=== PATIENT | female | born 1960 | race Two or more races ===

== ENCOUNTER 2024-09-05 16:21 | Emergency (ER) | payer MEDICARE, MEDICAID, SELFPAY ==
[2024-09-05 16:30] VITALS: BP 180/101; BP 185/110; PULSE 77; RESP 18; TEMP 36.8; O2SAT 96; BMI 38.5
--- NOTE | 2024-09-05 17:03 | PD.EDRME ---
Rapid Medical Screening Exam RME Arrival date/time: 09/05/24 16:21 63-year-old female presents emergency department complaints of dysuria Chief Complaint: Urogenital-Female Vital signs: Vital Signs Temperature 98.3 F 09/05/24 16:30 Pulse Rate 77 09/05/24 16:30 Respiratory Rate 18 09/05/24 16:30 Blood Pressure 180/101 H 09/05/24 16:30 Pulse Oximetry (%) 96 09/05/24 16:30 Oxygen Delivery Method Room Air 09/05/24 16:30
[2024-09-05 17:26] LABS: Collection Type, Urine Clean Catch
[2024-09-05 17:32] LABS: Bilirubin,Urine Negative (Negative); Blood,Urine Negative (Negative); Clarity,Urine Clear (Clear/Hazy); Color,Urine Lt-Yellow (Lt Yel-Yel); Culture Indicated,Urine Not Indicated; Glucose, Urine 4+ (Negative); Ketones,Urine Negative (Negative); Leukocyte Esterase,Urine Negative (Negative); Nitrite,Urine Negative (Negative); Protein,Urine 1+ (Neg - Trace); RBC,Urine 2 /hpf (0-3); Specific Gravity,Urine 1.023 (1.001-1.035); Squamous Epithelial Cell,Urine < 1 /hpf (0-5); Urobilinogen,Urine Negative mg/dL (0.0-1.0); WBC,Urine 2 /hpf (0-5)
--- NOTE | 2024-09-05 17:48 | XR_ITS ---
Examination: Pelvic ultrasound, transabdominal, complete Technique: Transabdominal ultrasound of the pelvis performed using grayscale imaging Date and time of exam: September 05, 2024 1906 hrs. Indications: Pelvic pain and painful urination beginning 2 days ago Findings: Uterus 7.2 x 2.8 x 5.4 cm No uterine mass Endometrial stripe 0.5 cm Ovaries obscured by bowel gas Impression: Limited study No uterine mass
[2024-09-05 19:00] LABS: Basophils # (Auto) 0.1 Thou/mm3 (0.0-0.2); Basophils % (Auto) 1 % (0-2.5); Eosinophils # (Auto) 0.3 Thou/mm3 (0.0-0.5); Eosinophils % (Auto) 4 % (0-10); Hematocrit 44.4 % (36.0-46.0); Hemoglobin 15.7 g/dL (12.0-16.0); Immature Granulocytes % (Auto) 1 % (0-0); Immature Granulocytes Auto 0.04 Thou/mm3 (0.00-0.00); Lymphocytes # (Auto) 1.7 Thou/mm3 (1.0-4.8); Lymphocytes % (Auto) 20 % (10-50); Mean Corpuscular HGB Conc 35.4 g/dl (31.0-37.0); Mean Corpuscular Hemoglobin 31.7 pg (25.0-35.0); Mean Corpuscular Volume 90 fL (80-100); Monocytes # (Auto) 0.5 Thou/mm3 (0.0-0.8); Monocytes % (Auto) 6 % (0-12); Neutrophils % (Auto) 69 % (37-80); Nucleated Red Blood Cell % 0 /100 WBC (0); RDW Standard Deviation 42.2 fL (36.4-46.3); Red Blood Count 4.96 Miln/mm3 (4.00-5.20); White Blood Count 8.6 Thou/mm3 (3.6-11.0)
[2024-09-05 19:03] LABS: Platelet Count 45 Thou/mm3 (140-440)
[2024-09-05 19:16] LABS: Slide Review Platelets confirmed
[2024-09-05 19:27] LABS: Alanine Aminotransferase 125 U/L (10-49); Albumin, Serum 4.3 gm/dL (3.4-4.8); Alkaline Phosphatase 166 U/L (46-116); Anion Gap 9 (7-16); Aspartate Amino Transferase 143 U/L (0-34); BUN/Creatinine Ratio 18 Ratio (12-20); Bilirubin,Total 0.4 mg/dL (0.3-1.2); Blood Urea Nitrogen 18 mg/dL (9-23); Calcium 9.6 mg/dL (8.3-10.6); Calcium (Corrected) 9.6 mg/dL (8.5-10.1); Carbon Dioxide 25.5 mMol/L (20.0-31.0); Chloride 103 mMol/L (98-107); Estimated Creatinine Clearance 54.3 mL/min (>60); Globulin 4.1 gm/dL (2.3-3.5); Glucose 249 mg/dL (74-106); Osmolality,Calculated 283 (275-295); Potassium 4.4 mMol/L (3.4-5.1); Sodium 137 mMol/L (136-145); Total Protein 8.4 gm/dL (5.7-8.2); eGFR > 60 See Note
[2024-09-05 19:34] LABS: Glucose Estimated Average 203 mg/dL (80-131); Hemoglobin A1C 8.7 % Hgb (4.8-6.0)
--- NOTE | 2024-09-05 19:53 | EDNOTE_ITS ---
ED Female Urogenital RME/HPI General Chief complaint: Urogenital-Female Stated complaint: I HAVE A URINE INFECTION Time Seen by Provider: 09/05/24 19:46 Arrival date/time: 09/05/24 16:21 RME / HPI RME / HPI Narrative: 63-year-old female patient with significant history of hypertension diabetes mellitus, came in for evaluation regarding dysuria. Onset of symptoms for the last several days as worsening dysuria specially when urinating, and urine touching the side of the vagina, redness to the vagina and rashes. Severity mild. Patient denies any fever. Denies any other complaints or medications taken prior to arrival Related Data Home Medications ?Medication ?Instructions ?Recorded ?Confirmed dapagliflozin propanediol 10 mg 10 mg PO QDAY 01/26/20 07/30/21 tablet (Farxiga) sitagliptin phosphate 100 mg 100 mg PO QDAY 01/26/20 07/30/21 tablet (Januvia) amlodipine 5 mg tablet 5 mg PO QDAY 07/30/21 07/30/21 Previous Rx's ?Medication ?Instructions ?Recorded benzonatate 100 mg capsule 100 mg PO TID #14 caps 09/28/23 nystatin-triamcinolone 100,000 1 applic topical BID 7 days #60 09/05/24 unit/g-0.1 % topical cream grams Allergies Allergy/AdvReac Type Severity Reaction Status Date / Time bee venom protein (honey bee) Allergy Severe Difficulty Verified 04/06/21 15:15 Breathing Review of Systems Review of Systems Narrative Review of Systems: Review of system reviewed and within normal limits except mentioned in HPI ED Exam Narrative Physical exam: VITAL SIGNS: Reviewed. GENERAL APPEARANCE: Alert and interactive, follows commands, no acute distress, HEAD AND FACE: Non-traumatic. ENT: PERRL, pink conjunctivitis, eyelid no trauma, Mucous membrane moist. NECK: Supple, nontender, no nuchal rigidity. CHEST: No tenderness, no crepitus, no paradoxical movement, no retractions. LUNGS: Clear, well ventilated, symmetric, no rales, no wheezing, no ronchi, no stridor, good breath sounds bilaterally. HEART: Regular rate, regular rhythm, no murmur, no gallops. ABDOMEN: Soft, positive bowel sounds, nondistended, no guarding, nontender, no rebound, no masses, RECTAL: Deferred. GENITAL: Refused vaginal exam NEUROLOGICAL: Gross motor function intact sensory function intact, Appropriate for age. MUSCULOSKELETAL: low back nontender, full range of motion. EXTREMITIES: Nontender, full range of motion. SKIN: Color pink, dry, no rash, no lacerations, no abrasions, no contusions. LYMPHATICS: Deferred. Course Quality Measures none Orders Category Date Time Status US pelvic complete Stat Exams 09/05/24 17:48 Taken A1C [Glycohemoglobin w (eAG)] Stat Lab 09/05/24 18:21 Completed CBC Stat Lab 09/05/24 18:21 Completed CMP [Comprehensive Metabolic Panel] Stat Lab 09/05/24 18:21 Completed UA, C/S IF [Urinalysis, C/S if Indicated] Stat Lab 09/05/24 17:03 Completed Vital Signs Vital signs: Vital Signs Temperature 98.3 F 09/05/24 16:30 Pulse Rate 77 09/05/24 16:30 Respiratory Rate 18 09/05/24 16:30 Blood Pressure 180/101 H 09/05/24 16:30 Pulse Oximetry (%) 96 09/05/24 16:30 Oxygen Delivery Method Room Air 09/05/24 16:30 Urogenital - Female MDM Narrative MDM Narrative:: 63-year-old female patient with significant history of hypertension diabetes mellitus, came in for evaluation regarding dysuria. Onset of symptoms for the last several days as worsening dysuria specially when urinating, and urine touching the side of the vagina, redness to the vagina and rashes. Severity mild. Patient denies any fever. Denies any other complaints or medications taken prior to arrival Patient refused vaginal exam. However told me that she had some rashes in her vaginal area might be Preeti infection. Patient will be sent home on nystatin cream Patient data External records reviewed:: None Clinical information provided by:: patient Social determinants that could affect healthcare access:: none Patient has the following chronic illnesses:: Hypertension diabetes mellitus How is presenting disease/condition affected by chronic disease/condition?: exacerbated by Evaluation data The following diagnostics were reviewed and interpreted by me:: lab results and radiology exam(s) Lab and/or radiology exams considered but not ordered:: None Interpretation Summary: Patient's workup today all came back unremarkable. No UTI. Ultrasound of pelvis also came back normal. Results discussed with the patient. Medications / Prescriptions Medications or Prescriptions considered but not ordered:: None Medication administrations:: None Consultations Consultation(s) initiated? (list below): No Diagnosis Urogenital Female Differential Diagnosis: urinary tract infection and other (Vaginal candidiasis, vaginal rashes) Most likely diagnosis given after review of the tests above:: Dysuria, vaginal candidiasis Admission Indicated Admission indicated?: not indicated Explain why admission is indicated or not indicated:: Stable Admission Request Was there a request for admission?: No Disposition Plan Disposition Plan: Discharge Discharge Attestation Discharge Attestation: The patient was given an opportunity to ask questions and understood the discharge instructions. Discharge instructions specifically effects, indications for sooner follow up or return to the emergency department, and the expected course of current diagnosis. Patient condition: Stable Discharge Plan Plan Patient Disposition: HOME (Self Care) Disposition Comment: stable Prescriptions/Referrals Prescriptions/Med Rec: New nystatin-triamcinolone 100,000-0.1 unit/g-% cream 1 applic topical BID 7 Days Qty: 60 0RF No Action Januvia 100 mg Tablet 100 mg PO QDAY Farxiga 10 mg Tablet 10 mg PO QDAY amlodipine 5 mg Tablet 5 mg PO QDAY benzonatate 100 mg capsule 100 mg PO TID Qty: 14 0RF Referrals: Wagner Issa MD [Primary Care Provider] - In 1 week Problem List Clinical Impression: Dysuria, Candidiasis, vagina Patient/Caregiver Discharge Instructions Discharge Activity: activity as tolerated Education Materials: Candidiasis Vaginal Additional Instructions: Thank you for the opportunity for serving you today. You are stable for discharged . You are advised to: Follow-up with your PCP in 1 to 2 days Return to ED for worsening of symptoms Increase oral fluids Apply medication as prescribed Print Language: Bahraini Stand Alone Forms: Cailin Award Info., Patient Portal Info Letter PA/FORENSIC ANTHROPOLOGIST Supervising Physician PA/FORENSIC ANTHROPOLOGIST Supervising Physician: MD Oswald
[2024-09-05 19:57] VITALS: RESP 18
== END 2024-09-05 19:57 | disposition home or self-care (01) ==
PROVIDERS: Nurse Practitioner Primary Care; Emergency Provider Emergency Medicine; PCP Family Medicine
DX: B37.31 Acute candidiasis of vulva and vagina (principal); R30.0 Dysuria; R10.2 Pelvic and perineal pain
CPT/HCPCS: 36415; 76856; 80053; 81001; 83036; 85025; 99284

== ENCOUNTER 2024-10-15 22:38 | Emergency (ER) | payer MEDICARE, MEDICAID, SELFPAY ==
[2024-10-15 22:40] VITALS: BMI 37.6
[2024-10-15 23:23] VITALS: BP 176/104; PULSE 91; RESP 20; TEMP 36.8; O2SAT 97
--- NOTE | 2024-10-15 23:46 | EDNOTE_ITS ---
<Statement entered by Fraiba Marr MD - 10/16/24 01:45> As co-signing physician, I was present and available for consult prn. I concur with the plan and care as documented by the midlevel provider. ED Wound/Laceration-RME/HPI General Chief Complaint: Abdominal Pain Stated Complaint: CYST TO RLQ Time Seen by Provider: 10/15/24 22:47 Arrival date/time: 10/15/24 22:38 63-year-old female with a history of [id number] diabetes reports for complaints of a bump on her right lower quadrant of the abdomen. Patient states that she attempted to squeeze the bump but nothing had come out. She states that it is very painful she denies any fever or chills discharge from the area weakness or fatigue. Limitations: no limitations Related Data Home Medications ?Medication ?Instructions ?Recorded ?Confirmed dapagliflozin propanediol 10 mg 10 mg PO QDAY 01/26/20 07/30/21 tablet (Farxiga) sitagliptin phosphate 100 mg 100 mg PO QDAY 01/26/20 1 09/30/20 tablet (Januvia) amlodipine 5 mg tablet 5 mg PO QDAY 07/30/21 Previous Rx's ?Medication ?Instructions ?Recorded benzonatate 100 mg capsule 100 mg PO TID #14 caps 03/14 cephalexin 500 mg capsule 500 mg PO BID 10 days #20 ca ps 10/15/24 Allergies Allergy/AdvReac Type Severity Reaction Status Date / Time bee venom protein (honey bee) Allergy Severe Difficulty Verified 04/06/21 15:15 Breathing Review of Systems Constitutional Constitutional: Denies chills and Denies fever(s) Cardiovascular Cardiovascular: Denies chest pain, Denies claudication and Denies dyspnea Respiratory Respiratory: Denies cough and Denies dyspnea Gastrointestinal Gastrointestinal: Denies abdominal pain, Denies nausea and Denies vomiting Musculoskeletal Musculoskeletal: Denies arthralgias, Denies back pain, Denies numbness and Denies tingling Integumentary/Breasts Skin/Breast: Reports erythema and Reports furuncle Neurologic Neurologic: Denies numbness and Denies tingling Hematologic/Lymphatic Hematologic/Lymphatic: Denies easy bleeding and Denies easy bruising Past Medical History Past Medical History NEUROLOGIC: Negative Neurological Disorders CARDIAC: Positive Hypertension; Negative Cardiac Disorders or Congestive Heart Failure RESPIRATORY: Negative Chronic Obstructive Pulmonary Disease (COPD) or Asthma GENITOURINARY: Negative Renal Disease ENDOCRINE: Positive Endocrine Disorders and Diabetes Mellitus Type 2; Negative Diabetes Mellitus Type 1 HEMATOLOGIC: Negative Sickle Cell Disease Social History SMOKING STATUS: Never smoker SUBSTANCE USE: does not use ED Exam General Limitations: Present no limitations General appearance: Present alert and in no apparent distress Chest Chest inspection: Present normal inspection and symmetric chest wall rise Respiratory Respiratory exam: Present normal lung sounds bilaterally Cardiovascular Cardiovascular exam: Present regular rate, normal rhythm and normal heart sounds Abdominal Exam Abdominal exam: Present soft, normal bowel sounds and other (small inflamed hair follicle diffusely tender nonfluctuant no purulent discharge no surrounding cellulitis) Back Exam Back exam: Present normal inspection and full ROM Neurological Exam Neurological exam: Present alert, oriented X3 and CN II-XII intact Psychiatric Psychiatric exam: Present normal affect and normal mood Skin Skin exam: Present warm, dry, intact and normal color Course Course Course Narrative: 63-year-old female with a history of [id number] diabetes reports but the inflamed hair follicle on the right abdomen. Patient is advised to keep the area clean and dry do not apply warm compresses do not attempt to squeeze she is to take the antibiotics as directed and follow with her primary care provider in 48 hours. She is stable nontoxic-appearing stable vital signs will be discharged Quality Measures none Vital Signs Vital signs: Vital Signs Temperature 98.3 F 10/15/24 23:23 Pulse Rate 91 10/15/24 23:23 Respiratory Rate 20 10/15/24 23:23 Blood Pressure 176/104 H 10/15/24 23:23 Pulse Oximetry (%) 97 10/15/24 23:23 Oxygen Delivery Method Room Air 10/15/24 23:23 Wound / Laceration Patient data External records reviewed:: None Clinical information provided by:: patient Social determinants that could affect healthcare access:: none Patient has the following chronic illnesses:: none How is presenting disease/condition affected by chronic disease/condition?: no chronic disease Evaluation data The following diagnostics were reviewed and interpreted by me:: other (specify) (none) Lab and/or radiology exams considered but not ordered:: n/a Interpretation Summary: n/a Medications / Prescriptions Medications or Prescriptions considered but not ordered:: n/a Medication administrations:: Cephalexin Consultations Consultation(s) initiated? (list below): No Diagnosis Wound Differential Diagnosis: abscess Most likely diagnosis given after review of the tests above:: furuncle Admission Indicated Admission indicated?: not indicated Admission Request Was there a request for admission?: No Disposition Plan Disposition Plan: Discharge Discharge Attestation Discharge Attestation: The patient and all family members were given an opportunity to ask questions and understood the discharge instructions. Discharge instructions specifically effects, indications for sooner follow up or return to the emergency department, and the expected course of current diagnosis. Patient condition: Stable Discharge Plan Plan Patient Disposition: HOME (Self Care) Prescriptions/Referrals Prescriptions/Med Rec: New cephalexin 500 mg capsule 500 mg PO BID 10 Days Qty: 20 0RF No Action Januvia 100 mg Tablet 100 mg PO QDAY Farxiga 10 mg Tablet 10 mg PO QDAY amlodipine 5 mg Tablet 5 mg PO QDAY benzonatate 100 mg capsule 100 mg PO TID Qty: 14 0RF Problem List Clinical Impression: Furuncle Patient/Caregiver Discharge Instructions Discharge Activity: activity as tolerated Education Materials: ED Folliculitis Additional Instructions: Keep the area clean with soap and water only do not attempt to squeeze and do not apply warm compresses. Take antibiotics as directed follow-up with your primary care provider in 48 hours. Return to the emergency department if symptoms should worsen Print Language: Estonian Stand Alone Forms: Cailin Award Info., Patient Portal Info Letter
[2024-10-16] MEDS: cephALEXin 250 MG CAPSULE 500 MG PO (00:23)
== END 2024-10-16 00:26 | disposition home or self-care (01) ==
PROVIDERS: Emergency Provider Emergency Medicine; PCP Family Medicine
DX: L02.92 Furuncle, unspecified (principal); E11.9 Type 2 diabetes mellitus without complications
CPT/HCPCS: 99282; A9270

== ENCOUNTER 2024-10-30 01:54 | Emergency (ER) | payer MEDICARE, MEDICAID, SELFPAY ==
[2024-10-30 02:37] VITALS: BP 154/89; PULSE 75; RESP 18; TEMP 36.8; O2SAT 95
--- NOTE | 2024-10-30 02:52 | PD.EDRME ---
Rapid Medical Screening Exam RME Arrival date/time: 10/30/24 01:54 63 yo f present to ED for c/o of back/cough pain I have greeted and performed a focused initial assessment of this patient. A comprehensive ED assessment and evaluation of the patient, analysis of all test results, and completion of the medical decision making process will be conducted by additional ED providers. Chief Complaint: Back Pain/Injury Time Seen by Provider: 10/30/24 02:58 Vital signs: Vital Signs Temperature 98.2 F 10/30/24 02:37 Pulse Rate 75 10/30/24 02:37 Respiratory Rate 18 10/30/24 02:37 Blood Pressure 154/89 H 10/30/24 02:37 Pulse Oximetry (%) 95 10/30/24 02:37 Oxygen Delivery Method Room Air 10/30/24 02:37
--- NOTE | 2024-10-30 05:53 | PD.EDADDENDU ---
Emergency Room Addendum Addendum Narrative: This patient eloped. I did not do a history and physical exam on this patient.
== END 2024-10-30 03:18 | disposition left against medical advice (07) ==
LOC: SERX 04:05
PROVIDERS: Emergency Provider Emergency Medicine
DX: M54.9 Dorsalgia, unspecified (principal); Z53.29 Procedure and treatment not carried out because of patient's decision for other reasons
CPT/HCPCS: 80053; 81001; 83690; 85025; 87400; 99281

== ENCOUNTER 2024-12-04 13:46 | Emergency (ER) | payer MEDICARE, MEDICAID, SELFPAY ==
[2024-12-04 13:47] VITALS: BMI 39.6
[2024-12-04 14:09] VITALS: BP 158/89; PULSE 76; RESP 18; TEMP 36.4; O2SAT 97
--- NOTE | 2024-12-04 14:12 | XR_ITS ---
Examination: CT abdomen and pelvis without contrast. Coronal 3-D reconstructions. Sagittal 2-D reconstructions. Date and time of exam:December 04, 2024 1455 hours Comparison January 17, 2021 INDICATIONS: Abdominal pain and constipation beginning 4 days ago CTDI: vol (mGy): 13.3 DLP: (mGycm): 651 Technique: Axial images of the abdomen have been obtained, 3 mm slice thickness Intravenous contrast material has not been administered. Low dose protocols were performed. One or more of the following dose reduction techniques were used; automated exposure control, adjustment of the mA and/or KV according to patient size, use of iterative reconstruction technique. Findings: Diffuse fatty infiltration throughout the liver Absent gallbladder Spleen not enlarged No pancreatic or adrenal mass No renal or ureteral calculi, no hydronephrosis Abundant stool throughout the entire colon No bowel obstruction No diverticulitis No pericecal inflammatory change Anteverted atrophic uterus Prominent osteopenia Grade 1 anterolisthesis L5 on S1 with moderate degenerative disc disease at this level Moderate narrowing hip joints No bladder mass IMPRESSION: Fatty liver Abundant stool throughout the entire colon but no obstruction
--- NOTE | 2024-12-04 14:13 | EDRME_ITS ---
Rapid Medical Screening Exam [facility] Arrival date/time: 12/04/24 13:46 63-year-old female with no known medical history presents to the emergency room with a chief complaint of constipation x 4 days, vomiting, lower abdominal pain. Patient states she was seen by her primary care provider and prescribed laxatives but they have not worked. I have greeted and performed a focused initial assessment of this patient. A comprehensive ED assessment and evaluation of the patient, analysis of all test results, and completion of the medical decision making process will be conducted by additional ED providers. Chief Complaint: General Adult/Misc Complain Vital signs: Vital Signs Temperature 97.6 F 12/04/24 14:09 Pulse Rate 76 12/04/24 14:09 Respiratory Rate 18 12/04/24 14:09 Blood Pressure 158/89 H 12/04/24 14:09 Pulse Oximetry (%) 97 12/04/24 14:09 Oxygen Delivery Method Room Air 12/04/24 14:09 Vital signs reviewed by provider: Yes
[2024-12-04 14:51] LABS: Collection Type, Urine Clean Catch
[2024-12-04 15:07] LABS: Bilirubin,Urine Negative (Negative); Blood,Urine Negative (Negative); Budding Yeast,Urine Present; Clarity,Urine Clear (Clear/Hazy); Color,Urine Yellow (Lt Yel-Yel); Glucose, Urine 4+ (Negative); Hyaline Casts,Urine < 1 /hpf (0-1); Ketones,Urine Negative (Negative); Leukocyte Esterase,Urine Negative (Negative); Nitrite,Urine Negative (Negative); PH,Urine 5.5 (5.0-7.0); Protein,Urine 1+ (Neg - Trace); RBC,Urine 5 /hpf (0-3); Specific Gravity,Urine 1.031 (1.001-1.035); Squamous Epithelial Cell,Urine 2 /hpf (0-5); Urobilinogen,Urine Negative mg/dL (0.0-1.0); WBC,Urine 2 /hpf (0-5)
[2024-12-04 15:15] LABS: Basophils # (Auto) 0.1 Thou/mm3 (0.0-0.2); Basophils % (Auto) 1 % (0-2.5); Eosinophils # (Auto) 0.2 Thou/mm3 (0.0-0.5); Eosinophils % (Auto) 2 % (0-10); Hematocrit 46.1 % (36.0-46.0); Hemoglobin 15.6 g/dL (12.0-16.0); Immature Granulocytes % (Auto) 0 % (0-0); Immature Granulocytes Auto 0.03 Thou/mm3 (0.00-0.00); Lymphocytes # (Auto) 1.1 Thou/mm3 (1.0-4.8); Lymphocytes % (Auto) 11 % (10-50); Mean Corpuscular HGB Conc 33.8 g/dl (31.0-37.0); Mean Corpuscular Hemoglobin 31.1 pg (25.0-35.0); Mean Corpuscular Volume 92 fL (80-100); Monocytes # (Auto) 0.5 Thou/mm3 (0.0-0.8); Monocytes % (Auto) 5 % (0-12); Neutrophils # (Auto) 8.2 Thou/mm3 (1.8-7.7); Neutrophils % (Auto) 81 % (37-80); Nucleated Red Blood Cell % 0 /100 WBC (0); Platelet Count 82 Thou/mm3 (140-440); RDW Standard Deviation 45.1 fL (36.4-46.3); Red Blood Count 5.01 Miln/mm3 (4.00-5.20); White Blood Count 10.1 Thou/mm3 (3.6-11.0)
[2024-12-04 15:36] LABS: Alanine Aminotransferase 136 U/L (10-49); Albumin, Serum 4.3 gm/dL (3.4-4.8); Alkaline Phosphatase 137 U/L (46-116); Anion Gap 8 (7-16); Aspartate Amino Transferase 127 U/L (0-34); BUN/Creatinine Ratio 25 Ratio (12-20); Bilirubin,Total 0.8 mg/dL (0.3-1.2); Blood Urea Nitrogen 27 mg/dL (9-23); Calcium 9.4 mg/dL (8.3-10.6); Calcium (Corrected) 9.4 mg/dL (8.5-10.1); Carbon Dioxide 27.5 mMol/L (20.0-31.0); Chloride 104 mMol/L (98-107); Creatinine (Component) 1.1 mg/dL (0.6-1.3); Estimated Creatinine Clearance 48.1 mL/min (>60); Globulin 4.4 gm/dL (2.3-3.5); Glucose 184 mg/dL (74-106); Lipase 40 U/L (12-53); Osmolality,Calculated 287 (275-295); Potassium 4.6 mMol/L (3.4-5.1); Sodium 139 mMol/L (136-145); Total Protein 8.7 gm/dL (5.7-8.2); eGFR 56 See Note
--- NOTE | 2024-12-04 17:55 | PD.EDADULT ---
ED General RME/HPI General Chief complaint: General Adult/Misc Complain Stated complaint: NO BM X 4 DAYS Time Seen by Provider: 12/04/24 17:50 Arrival date/time: 12/04/24 13:46 CC: Constipation HPI patient states has been able to have a bowel movement for 4 days. She was recommended castor oil by her PCP she tried it at 1230 today with no result. She patient was apprised understand that this takes some time to work, patient is afebrile nontoxic-appearing not in any acute distress. RME / HPI RME / HPI narrative: 12/04/24 13:46 63-year-old female with no known medical history presents to the emergency room with a chief complaint of constipation x 4 days, vomiting, lower abdominal pain. Patient states she was seen by her primary care provider and prescribed laxatives but they have not worked. I have greeted and performed a focused initial assessment of this patient. A comprehensive ED assessment and evaluation of the patient, analysis of all test results, and completion of the medical decision making process will be conducted by additional ED providers. Related Data Home Medications ?Medication ?Instructions ?Recorded ?Confirmed dapagliflozin propanediol 10 mg 10 mg PO QDAY 01/26/20 07/30/21 tablet (Farxiga) sitagliptin phosphate 100 mg 100 mg PO QDAY 01/26/20 07/30/21 tablet (Januvia) amlodipine 5 mg tablet 5 mg PO QDAY 07/30/21 07/30/21 Previous Rx's ?Medication ?Instructions ?Recorded benzonatate 100 mg capsule 100 mg PO TID #14 caps 09/28/23 magnesium citrate 150 ml PO .once #296 mL 12/04/24 Allergies Allergy/AdvReac Type Severity Reaction Status Date / Time bee venom protein (honey bee) Allergy Severe Difficulty Verified 12/04/24 13:50 Breathing Review of Systems Review of Systems Narrative Review of Systems: GEN: No fever, no chills, no weight loss EYES: No discharge, no visual changes, no pain HEENT: No ear pain, no congestion, no sore throat PULM: No shortness of breath, no cough, no congestion CV: No chest pain, no dyspnea on exertion, no palpitations GI: No nausea, no vomiting, no diarrhea, no pain, + constipation : No frequency, no urgency, no dysuria MUSC/SKEL: No joint pain, no back pain SKIN: No rash PSYCH: No hallucinations, no depression HEME/LYMPH: No easy bleeding or bruising tendencies NEURO: No weakness, no headache Past Medical History Past Medical History NEUROLOGIC: Negative Neurological Disorders CARDIAC: Positive Hypertension; Negative Cardiac Disorders or Congestive Heart Failure RESPIRATORY: Negative Chronic Obstructive Pulmonary Disease (COPD) or Asthma GENITOURINARY: Negative Renal Disease ENDOCRINE: Positive Endocrine Disorders and Diabetes Mellitus Type 2; Negative Diabetes Mellitus Type 1 HEMATOLOGIC: Negative Sickle Cell Disease Social History SMOKING STATUS: Never smoker SUBSTANCE USE: does not use ED Exam Narrative Physical exam: [General: Not in any acute distress Head normocephalic HEENT: Within acceptable limits Neck is supple nontender Chest equal chest rise nontender to palpation Respiratory: Clear to auscultation no wheezes crackles or rubs CV: Rate rhythm is regular no murmurs rubs or clicks Abdomen is distended secondary to body habitus soft nontender no masses positive bowel sounds all 4 quadrants Back: No CVA tenderness no spinous process tenderness from cervical spine thoracic and lumbar spine Skin: Intact no petechiae rash induration ulceration or crepitus Extremities: Moving all extremity against resistance cap refill less than 2 seconds neurosensory intact Neuro: Awake alert oriented x3 Glascow coma 15 no focal deficits] Course Quality Measures none Orders Category Date Time Status CT abdomen pelvis wo con Stat Exams 12/04/24 14:12 Completed CBC Stat Lab 12/04/24 14:30 Completed CMP [Comprehensive Metabolic Panel] Stat Lab 12/04/24 14:30 Completed Lipase Stat Lab 12/04/24 14:30 Completed UA [Urinalysis] Stat Lab 12/04/24 14:30 Completed Urine Culture Stat Lab 12/04/24 14:30 Received Ondansetron Odt [Zofran Odt] Med 12/04/24 14:13 Discontinued 4 mg PO X1 ONE Vital Signs Vital signs: Vital Signs Temperature 97.6 F 12/04/24 14:09 Pulse Rate 76 12/04/24 14:09 Respiratory Rate 18 12/04/24 14:09 Blood Pressure 158/89 H 12/04/24 14:09 Pulse Oximetry (%) 97 12/04/24 14:09 Oxygen Delivery Method Room Air 12/04/24 14:09 [facility] Patient data External records reviewed:: [facility] previous records Clinical information provided by:: patient Social determinants that could affect healthcare access:: none Patient has the following chronic illnesses:: Diabetes hypertension How is presenting disease/condition affected by chronic disease/condition?: uneffected by Evaluation data The following diagnostics were reviewed and interpreted by me:: lab results and radiology exam(s) Lab and/or radiology exams considered but not ordered:: CBC shows no acute leukocytosis anemia there is no thrombocytopenia CMP shows no acute electrolyte imbalances mildly elevated BUN at 27 creatinine 1.1 Mild transaminitis no T. bili elevation. Urine is negative for urinary tract infection Interpretation Summary: Patient is mildly dehydrated, CT shows that there is a large amount of stool but no obstruction. Patient is not in any acute distress she is impatient, does not realize that the medications given by the doctor take some time to work. Patient will be prescribed 1 bottle of magnesium citrate in case the interventions directed by her PCP are not successful. Medications Medications considered but not ordered:: None Medication administrations:: Medication Administration History Discontinued Medications Ondansetron HCl (Ondansetron Odt 4 Mg Tabrap) 4 mg PO X1 ONE; Protocol Stop: 12/04/24 14:14 Last Admin: 12/04/24 14:18 Dose: Not Given Documented By: OA Non-Admin Reason: Patient Refused None Consultations Consultation(s) initiated? (list below): No Diagnosis Differential Diagnosis ED Complaint MDM: Constipation obstipation ileus Most likely diagnosis given after review of the tests above:: Constipation Admission Indicated Admission indicated?: not indicated Explain why admission is indicated or not indicated:: Stable for discharge Admission Request Was there a request for admission?: No Disposition Plan Disposition Plan: Discharge Discharge Attestation Discharge Attestation: The patient and all family members were given an opportunity to ask questions and understood the discharge instructions. Discharge instructions specifically effects, indications for sooner follow up or return to the emergency department, and the expected course of current diagnosis. Patient condition: Stable Medical Decision Making Differential Diagnosis Differential Diagnosis: Constipation obstipation ileus Lab Data 12/04/24 14:30 12/04/24 14:30 Labs: Lab Results 12/04/24 Range/Units 14:30 WBC 10.1 (3.6-11.0) Thou/mm3 RBC 5.01 (4.00-5.20) Miln/mm3 Hgb 15.6 (12.0-16.0) g/dL Hct 46.1 H (36.0-46.0) % MCV 92 (80-100) fL MCH 31.1 (25.0-35.0) pg MCHC 33.8 (31.0-37.0) g/dl RDW Std Deviation 45.1 (36.4-46.3) fL Plt Count 82 L (140-440) Thou/mm3 Neut % (Auto) 81 H (37-80) % Lymph % (Auto) 11 (10-50) % [place] % (Auto) 5 (0-12) % Eos % (Auto) 2 (0-10) % Baso % (Auto) 1 (0-2.5) % Neut # (Auto) 8.2 H (1.8-7.7) Thou/mm3 Lymph # (Auto) 1.1 (1.0-4.8) Thou/mm3 [place] # (Auto) 0.5 (0.0-0.8) Thou/mm3 Eos # (Auto) 0.2 (0.0-0.5) Thou/mm3 Baso # (Auto) 0.1 (0.0-0.2) Thou/mm3 Immature Gran # (Auto) 0.03 H (0.00-0.00) Thou/mm3 Absolute Nucleated RBC 0.00 (0.00-0.00) Thou/mm3 Immature Gran % 0 (0-0) % Nucleated RBC % 0 (0) /100 WBC Sodium 139 (136-145) mMol/L Potassium 4.6 (3.4-5.1) mMol/L Chloride 104 (98-107) mMol/L Carbon Dioxide 27.5 (20.0-31.0) mMol/L Anion Gap 8 (7-16) BUN 27 H (9-23) mg/dL Creatinine 1.1 (0.6-1.3) mg/dL Estim Creat Clear Calc 48.1 L (>60) mL/min eGFR 56 L (60 - ) See Note BUN/Creatinine Ratio 25 H (12-20) Ratio Glucose 184 H (74-106) mg/dL Calculated Osmolality 287 (275-295) Calcium 9.4 (8.3-10.6) mg/dL Corrected Calcium 9.4 (8.5-10.1) mg/dL Total Bilirubin 0.8 (0.3-1.2) mg/dL AST 127 H (0-34) U/L ALT 136 H (10-49) U/L Alkaline Phosphatase 137 H (46-116) U/L Total Protein 8.7 H (5.7-8.2) gm/dL Albumin 4.3 (3.4-4.8) gm/dL Globulin 4.4 H (2.3-3.5) gm/dL Albumin/Globulin Ratio 1.0 L (1.2-2.2) Lipase 40 (12-53) U/L Ur Collection Type Clean Catch Urine Color Yellow (Lt Yel-Yel) Urine Clarity Clear (Clear/Hazy) Urine pH 5.5 (5.0-7.0) Ur Specific Roann 1.031 (1.001-1.035) Urine Protein 1+ A (Neg - Trace) Urine Glucose (UA) 4+ A (Negative) Urine Ketones Negative (Negative) Urine Blood Negative (Negative) Urine Nitrite Negative (Negative) Urine Bilirubin Negative (Negative) Urine Urobilinogen (Auto) Negative (0.0-1.0) mg/dL Ur Leukocyte Esterase Negative (Negative) Urine RBC 5 H (0-3) /hpf Urine WBC 2 (0-5) /hpf Ur Squamous Epith Cells 2 (0-5) /hpf Urine Bacteria None (None) Hyaline Casts < 1 (0-1) /hpf Urine Yeast (Budding) Present A (None) Discharge Plan Plan Patient Disposition: HOME (Self Care) Patient condition on transfer: Stable Prescriptions/Referrals Prescriptions/Med Rec: New magnesium citrate Solution 150 ml PO .once Qty: 296 0RF No Action Januvia 100 mg Tablet 100 mg PO QDAY Farxiga 10 mg Tablet 10 mg PO QDAY amlodipine 5 mg Tablet 5 mg PO QDAY benzonatate 100 mg capsule 100 mg PO TID Qty: 14 0RF Referrals: Wagner Issa MD [Primary Care Provider] - In 1 week Problem List Clinical Impression: Constipation Patient/Caregiver Discharge Instructions Education Materials: ED Constipation (Adult) Print Language: Albanian Stand Alone Forms: Cailin Award Info., Patient Portal Info Letter, Work/School Release PA/THERAPEUTIC RECREATION SPECIALIST Supervising Physician PA/THERAPEUTIC RECREATION SPECIALIST Supervising Physician: Wes Ramos ENP
== END 2024-12-04 18:25 | disposition home or self-care (01) ==
PROVIDERS: Nurse Practitioner Family; Emergency Provider Emergency Medicine; PCP Family Medicine
DX: K59.00 Constipation, unspecified (principal)
CPT/HCPCS: 36415; 74176; 80053; 81001; 83690; 85025; 87086; 99284

== ENCOUNTER 2025-01-20 09:22 | Emergency (ER) | payer MEDICARE, MEDICAID, SELFPAY ==
[2025-01-20 09:59] VITALS: BP 172/78; PULSE 60; RESP 18; TEMP 36.5; O2SAT 98; BMI 39.6
--- NOTE | 2025-01-20 11:05 | PD.EDLOWEX ---
Lower Extremity Injury RME/HPI General Chief Complaint: Extremity Injury, Lower Stated Complaint: RIGHT FOOT PAIN Time Seen by Provider: 01/20/25 09:53 Arrival date/time: 01/20/25 09:22 This is a 64-year-old female that comes in with complaints of right foot pain. Patient's right second digit is bruised and slightly swollen. Patient states she dropped a jar of mayonnaise on her foot. Patient has a history of diabetes, high blood pressure. Related Data Home Medications ?Medication ?Instructions ?Recorded ?Confirmed dapagliflozin propanediol 10 mg 10 mg PO QDAY 01/26/20 07/30/21 tablet (Farxiga) sitagliptin phosphate 100 mg 100 mg PO QDAY 01/26/20 07/30/21 tablet (Januvia) amlodipine 5 mg tablet 5 mg PO QDAY 07/30/21 07/30/21 Previous Rx's ?Medication ?Instructions ?Recorded benzonatate 100 mg capsule 100 mg PO TID #14 caps 09/28/23 magnesium citrate 150 ml PO .once #296 mL 12/04/24 Allergies Allergy/AdvReac Type Severity Reaction Status Date / Time bee venom protein (honey bee) Allergy Severe Difficulty Verified 01/20/25 09:26 Breathing Course Orders Category Date Time Status XR foot comp RT min 3V Stat Exams 01/20/25 11:06 Completed Vital Signs Vital signs: Vital Signs Temperature 97.7 F 01/20/25 09:59 Pulse Rate 60 01/20/25 09:59 Respiratory Rate 18 01/20/25 09:59 Blood Pressure 172/78 H 01/20/25 09:59 Pulse Oximetry (%) 98 01/20/25 09:59 Oxygen Delivery Method Room Air 01/20/25 09:59 Discharge Plan Plan Patient Disposition: HOME (Self Care) Patient condition on transfer: Stable Prescriptions/Referrals Prescriptions/Med Rec: No Action Januvia 100 mg Tablet 100 mg PO QDAY Farxiga 10 mg Tablet 10 mg PO QDAY amlodipine 5 mg Tablet 5 mg PO QDAY benzonatate 100 mg capsule 100 mg PO TID Qty: 14 0RF magnesium citrate Solution 150 ml PO .once Qty: 296 0RF Referrals: Wagner Issa MD [Primary Care Provider] - In 1 week Problem List Clinical Impression: Metatarsal bone fracture, Contusion of foot Patient/Caregiver Discharge Instructions Discharge Activity: activity as tolerated Education Materials: Bruises (Contusions), ED Fracture, Foot Additional Instructions: Follow up with primary provider in 1-2 days. Come back to ED if symptoms change or worsen. may need to see orthopedic surgeon. Please see from primary provider Print Language: Czech Stand Alone Forms: Cailin Award Info., Patient Portal Info Letter PA/GROCERY SUPERVISOR Supervising Physician PA/GROCERY SUPERVISOR Supervising Physician: marsha
--- NOTE | 2025-01-20 11:06 | XR_ITS ---
Examination: Foot, right, 3 views Technique: AP, oblique, lateral views foot, 3 views Date and time of exam: January 20, 2025 11:11 AM INDICATIONS: Injury to foot 2 days ago, foot pain FINDINGS: On the AP view suspicious for nondisplaced fracture proximal fourth metatarsal No dislocation IMPRESSION: As clinically warranted, consider CT scan for without contrast follow-up to exclude nondisplaced fracture proximal fourth metatarsal
== END 2025-01-20 13:56 | disposition home or self-care (01) ==
PROVIDERS: Emergency Provider Emergency Medicine; PCP Family Medicine
DX: S92.344A Nondisplaced fracture of fourth metatarsal bone, right foot, initial encounter for closed fracture (principal); W20.8XXA Other cause of strike by thrown, projected or falling object, initial encounter
CPT/HCPCS: 29515; 73630; 99283

== ENCOUNTER 2025-04-21 23:02 | Emergency (ER) | payer MEDICARE, MEDICAID, SELFPAY ==
[2025-04-21 23:03] VITALS: BMI 39.4
[2025-04-21 23:09] VITALS: BP 193/95; PULSE 63; RESP 18; TEMP 36.5; O2SAT 100
--- NOTE | 2025-04-21 23:31 | XR_ITS ---
Examination: CT abdomen and pelvis without contrast. Coronal 3-D reconstructions. Sagittal 2-D reconstructions. Date and time of exam:April 21, 2000 2514 hours Indications: Right flank pain beginning 3 days ago CTDI: vol (mGy): 11.5 DLP: (mGycm): 646 Technique: Axial images of the abdomen have been obtained, 3 mm slice thickness Intravenous contrast material has not been administered. Low dose protocols were performed. One or more of the following dose reduction techniques were used; automated exposure control, adjustment of the mA and/or KV according to patient size, use of iterative reconstruction technique. Findings: Impression: Significant hepatomegaly, liver irregular contour Hepatomegaly 22 cm No focal liver or splenic lesions. Absent gallbladder. No pancreatic or adrenal mass. Mild renal parenchymal scar formation. Abdominal aortic calcification no aneurysmal dilatation No pericecal inflammatory change No bowel obstruction or diverticulitis Atrophic uterus Moderate degenerative disc disease L5-S1 Impression: Significant hepatomegaly, suspect primary hepatocellular disease No renal or ureteral calculi, no hydronephrosis No CT findings of appendicitis bowel obstruction or diverticulitis
[2025-04-21 23:39] LABS: Collection Type, Urine Clean Catch; WBC,Urine 0 /hpf (0-5)
[2025-04-21 23:49] LABS: Amorphous Crystals,Urine Present (Absent); Bilirubin,Urine Negative (Negative); Blood,Urine Negative (Negative); Clarity,Urine Clear (Clear/Hazy); Color,Urine Lt-Yellow (Lt Yel-Yel); Glucose, Urine 4+ (Negative); Ketones,Urine Negative (Negative); Leukocyte Esterase,Urine Negative (Negative); Nitrite,Urine Negative (Negative); PH,Urine 6.0 (5.0-7.0); Protein,Urine Negative (Neg - Trace); RBC,Urine 1 /hpf (0-3); Specific Gravity,Urine 1.026 (1.001-1.035); Squamous Epithelial Cell,Urine 1 /hpf (0-5); Urobilinogen,Urine Negative mg/dL (0.0-1.0)
[2025-04-21 23:59] LABS: HCG Qualitative,Urine Negative
[2025-04-22 00:05] LABS: Basophils # (Auto) 0.1 Thou/mm3 (0.0-0.2); Basophils % (Auto) 1 % (0-2.5); Eosinophils # (Auto) 0.4 Thou/mm3 (0.0-0.5); Eosinophils % (Auto) 4 % (0-10); Hematocrit 42.1 % (36.0-46.0); Hemoglobin 14.6 g/dL (12.0-16.0); Immature Granulocytes Auto 0.04 Thou/mm3 (0.00-0.00); Lymphocytes # (Auto) 2.0 Thou/mm3 (1.0-4.8); Lymphocytes % (Auto) 23 % (10-50); Mean Corpuscular HGB Conc 34.7 g/dl (31.0-37.0); Mean Corpuscular Hemoglobin 32.2 pg (25.0-35.0); Mean Corpuscular Volume 93 fL (80-100); Monocytes # (Auto) 0.6 Thou/mm3 (0.0-0.8); Monocytes % (Auto) 7 % (0-12); Neutrophils # (Auto) 5.7 Thou/mm3 (1.8-7.7); Neutrophils % (Auto) 65 % (37-80); Nucleated Red Blood Cell # 0.00 Thou/mm3 (0.00-0.00); Nucleated Red Blood Cell % 0 /100 WBC (0); Platelet Count 112 Thou/mm3 (140-440); RDW Standard Deviation 47.3 fL (36.4-46.3); Red Blood Count 4.53 Miln/mm3 (4.00-5.20); White Blood Count 8.8 Thou/mm3 (3.6-11.0)
[2025-04-22 00:26] LABS: Alanine Aminotransferase 57 U/L (10-49); Albumin, Serum 4.1 gm/dL (3.4-4.8); Albumin/Globulin Ratio 1.2 (1.2-2.2); Alkaline Phosphatase 191 U/L (46-116); Anion Gap 9 (7-16); Aspartate Amino Transferase 43 U/L (0-34); BUN/Creatinine Ratio 17 Ratio (12-20); Bilirubin,Total 0.3 mg/dL (0.3-1.2); Blood Urea Nitrogen 15 mg/dL (9-23); Calcium 9.6 mg/dL (8.3-10.6); Calcium (Corrected) 9.6 mg/dL (8.5-10.1); Carbon Dioxide 25.8 mMol/L (20.0-31.0); Chloride 104 mMol/L (98-107); Creatinine (Component) 0.9 mg/dL (0.6-1.3); Estimated Creatinine Clearance 57.9 mL/min (>60); Globulin 3.4 gm/dL (2.3-3.5); Glucose 223 mg/dL (74-106); Lipase 44 U/L (12-53); Osmolality,Calculated 285 (275-295); Potassium 4.3 mMol/L (3.4-5.1); Sodium 139 mMol/L (136-145); Total Protein 7.5 gm/dL (5.7-8.2); eGFR > 60 See Note
--- NOTE | 2025-04-22 01:00 | PD.EDFMALE ---
ED Female Urogenital RME/HPI General Chief complaint: Urogenital-Female Stated complaint: I THINK I HAVE A BAD UTI Time Seen by Provider: 04/21/25 23:15 Arrival date/time: 04/21/25 23:02 This is a case of 68-year-old female with history of diabetes came in in the emergency room due to bilateral flank pain radiating to the lower back and suprapubic area for 1 day associated with painful urination frequency and urgency no hematuria denies nausea vomiting denies constipation diarrhea denies any blood in stool Limitations: no limitations Related Data Home Medications ?Medication ?Instructions ?Recorded ?Confirmed dapagliflozin propanediol 10 mg 10 mg PO QDAY 01/26/20 07/30/21 tablet (Farxiga) sitagliptin phosphate 100 mg 100 mg PO QDAY 01/26/20 07/30/21 tablet (Januvia) amlodipine 5 mg tablet 5 mg PO QDAY 07/30/21 07/30/21 Previous Rx's ?Medication ?Instructions ?Recorded benzonatate 100 mg capsule 100 mg PO TID #14 caps 09/28/23 magnesium citrate 150 ml PO .once #296 mL 12/04/24 cephalexin 500 mg capsule 500 mg PO QID 10 days #40 caps 04/22/25 phenazopyridine 200 mg tablet 200 mg PO TID 2 days #6 tabs 04/22/25 (Pyridium) Allergies Allergy/AdvReac Type Severity Reaction Status Date / Time bee venom protein (honey bee) Allergy Severe Difficulty Verified 04/21/25 23:03 Breathing Review of Systems Review of Systems Systems Reviewed: All systems reviewed, normal except as documented Constitutional Constitutional: Reports system reviewed and no additional complaints, except as documented and Reports as per HPI Cardiovascular Cardiovascular: Reports system reviewed and no additional complaints, except as documented and Reports as per HPI Respiratory Respiratory: Reports system reviewed and no additional complaints, except as documented and Reports as per HPI Gastrointestinal Gastrointestinal: Reports system reviewed and no additional complaints, except as documented and Reports as per HPI Genitourinary Genitourinary: Reports system reviewed and no additional complaints, except as documented and Reports as per HPI Musculoskeletal Musculoskeletal: Reports system reviewed and no additional complaints, except as documented and Reports as per HPI Neurologic Neurologic: Reports system reviewed and no additional complaints, except as documented and Reports as per HPI Past Medical History Past Medical History NEUROLOGIC: Negative Neurological Disorders CARDIAC: Positive Hypertension; Negative Cardiac Disorders or Congestive Heart Failure RESPIRATORY: Negative Chronic Obstructive Pulmonary Disease (COPD) or Asthma GENITOURINARY: Negative Renal Disease ENDOCRINE: Positive Endocrine Disorders and Diabetes Mellitus Type 2; Negative Diabetes Mellitus Type 1 HEMATOLOGIC: Negative Sickle Cell Disease Social History SMOKING STATUS: Never smoker SUBSTANCE USE: does not use ED Exam General Limitations: Present no limitations General appearance: Present alert, in no apparent distress and other (Patient is awake alert oriented not in distress nontoxic looking well-hydrated well-nourished) Head Head exam: Present atraumatic, normocephalic and normal inspection Eye Eye exam: Present normal appearance, PERRL and EOMI ENT ENT exam: Present normal exam, normal oropharynx and mucous membranes moist Neck Neck exam: Present normal inspection, full ROM and trachea midline; Absent tenderness, meningismus or lymphadenopathy Chest Chest inspection: Present normal inspection and symmetric chest wall rise; Absent tenderness Respiratory Respiratory exam: Present normal lung sounds bilaterally; Absent respiratory distress, wheezes, stridor, accessory muscle use or prolonged expiratory phase Cardiovascular Cardiovascular exam: Present regular rate, normal rhythm and normal heart sounds; Absent bradycardia, tachycardia, irregular rhythm, systolic murmur or diastolic murmur Abdominal Exam Abdominal exam: Present soft and normal bowel sounds; Absent distention, tenderness, guarding, rebound, rigidity, diminished bowel sounds, hyperactive bowel sounds, hypoactive bowel sounds, organomegaly, trauma, psoas sign, obturator sign, Soto's sign, Rovsing's sign, tenderness at McBurney's Point, ascites or hernia Extremities Exam Extremities exam: Present normal inspection and full ROM Back Exam Back exam: Present normal inspection and full ROM; Absent tenderness, CVA tenderness (R), CVA tenderness (L), muscle spasm, paraspinal tenderness, vertebral tenderness, rashes, sciatic notch tenderness (R) or sciatic notch tenderness (L) Neurological Exam Neurological exam: Present alert, oriented X3, CN II-XII intact, normal gait and reflexes normal; Absent motor sensory deficit Psychiatric Psychiatric exam: Present normal affect and normal mood Skin Skin exam: Present warm, dry, intact and normal color Course Quality Measures none Orders Category Date Time Status CT abdomen pelvis wo con Stat Exams 04/21/25 23:31 Completed CBC Stat Lab 04/21/25 23:51 Completed Comprehensive Metabolic Panel Stat Lab 04/21/25 23:51 Completed HCG Qualitative,Urine Stat Lab 04/21/25 23:32 Completed Lipase Stat Lab 04/21/25 23:51 Completed Urinalysis Stat Lab 04/21/25 23:32 Completed cephALEXin [Keflex] Med 04/22/25 00:50 Discontinued 500 mg PO X1 ONE Vital Signs Vital signs: Vital Signs Temperature 97.7 F 04/21/25 23:09 Pulse Rate 63 04/21/25 23:09 Respiratory Rate 18 04/21/25 23:09 Blood Pressure 193/95 H 04/21/25 23:09 Pulse Oximetry (%) 100 04/21/25 23:09 Oxygen Delivery Method Room Air 04/21/25 23:09 Patient oxygen saturation is 100% in room air Urogenital - Female MDM Narrative MDM Narrative:: This is a case of 68-year-old female with history of diabetes came in in the emergency room due to bilateral flank pain radiating to the lower back and suprapubic area for 1 day associated with painful urination frequency and urgency no hematuria denies nausea vomiting denies constipation diarrhea denies any blood in stool physical examination patient is awake alert oriented not in distress nontoxic looking well-hydrated well-nourished excellent skin turgor abdominal exam is benign nonsurgical no guarding no rebound no rigidity no tenderness negative psoas negative straight or negative Rovsing's negative Omaha's negative Soto sign negative CVA tenderness patient back exam noted no tenderness no crepitation no deformity no paraspinal no paravertebral tenderness leg raise exam is normal steady gait the rest of the physical examination neurological exam is normal and unremarkable blood test showed no leukocytosis no anemia kidney function is normal liver function is slightly elevated AST 43 ALT 57 alk phos 191 patient have hepatomegaly on the ultrasound patient was advised to see a GI specialist for further evaluation and treatment patient urinalysis showed positive for urinary tract infection CT scan showed hepatomegaly DDD of the lumbar patient was discharged with cephalexin for urinary tract infection and Pyridium for the dysuria patient will follow-up with PCP to be referred to neurosurgeon for DDD for possible MRI to rule out herniated disc no signs and symptoms of cauda equina return precaution in the ER for worsening symptoms he is advised Patient was discharged with comfortable condition walking with stable gait. Patient verbalized no further complains explained diagnosis and answered patient question. Patient is comfortable with the proposed management plan including the need to follow up with his/her primary care physician and any specialist if applicable Discussed patient for any urgent condition or worsening sx, He/She needed to go to emergency room immediately or call 911. Patient acknowledge the responsibility to follow up as instructed and to monitor her/his symptoms. For any persistence of the symptoms for more than 3-5 days return precaution advised. Discussed the result of the test and was given printed discharge instruction Patient data External records reviewed:: [facility] previous records Clinical information provided by:: patient Social determinants that could affect healthcare access:: none Patient has the following chronic illnesses:: None How is presenting disease/condition affected by chronic disease/condition?: no chronic disease Evaluation data The following diagnostics were reviewed and interpreted by me:: lab results and radiology exam(s) Lab and/or radiology exams considered but not ordered:: Reviewed Interpretation Summary: Reviewed Medications / Prescriptions Medications or Prescriptions considered but not ordered:: Given Medication administrations:: Medication Administration History Discontinued Medications Cephalexin HCl (Cephalexin 250 Mg Capsule) 500 mg PO X1 ONE Stop: 04/22/25 00:51 Last Admin: 04/22/25 00:57 Dose: 500 mg Documented By: SM Given Consultations Consultation(s) initiated? (list below): No Diagnosis Urogenital Female Differential Diagnosis: urinary tract infection and other (Kidney stones) Most likely diagnosis given after review of the tests above:: Urinary tract infection Admission Indicated Admission indicated?: not indicated Explain why admission is indicated or not indicated:: Not indicated Admission Request Was there a request for admission?: No Admission Attestation Admission request attestation: Not indicated Disposition Plan Disposition Plan: Discharge Discharge Attestation Discharge Attestation: The patient and all family members were given an opportunity to ask questions and understood the discharge instructions. Discharge instructions specifically effects, indications for sooner follow up or return to the emergency department, and the expected course of current diagnosis. Patient condition: Stable Discharge Plan Plan Patient Disposition: HOME (Self Care) Patient condition on transfer: Stable Prescriptions/Referrals Prescriptions/Med Rec: New cephalexin 500 mg capsule 500 mg PO QID 10 Days Qty: 40 0RF phenazopyridine [Pyridium] 200 mg tablet 200 mg PO TID 2 Days Qty: 6 0RF No Action Januvia 100 mg Tablet 100 mg PO QDAY Farxiga 10 mg Tablet 10 mg PO QDAY amlodipine 5 mg Tablet 5 mg PO QDAY benzonatate 100 mg capsule 100 mg PO TID Qty: 14 0RF magnesium citrate Solution 150 ml PO .once Qty: 296 0RF Problem List Clinical Impression: Flank pain, Urinary tract infection, Hepatomegaly, Abnormal glucose, DDD (degenerative disc disease), lumbar Patient/Caregiver Discharge Instructions Education Materials: Tests for Liver Disease, Urinary Tract Infections in Women, Diabetes: Living Your Life, ED Degenerative Disk Disease, ED Flank Pain, Uncertain Cause Additional Instructions: Follow-up with your primary care physician in 2 days for reevaluation and to be referred to warehouse engineer for further evaluation and treatment of hepatomegaly it is also very important to monitor your blood sugar and to record reviewed the medication and take the medication as directed by your primary care physician continue to monitor the blood sugar every 12 hours and return to the emergency room if your blood sugar greater than 250 or below 80 or become symptomatic diabetic diet is advised take your medication as directed finish the course of antibiotic increase water intake keep hydrated is advised follow-up with your primary care physician to be referred to neurosurgeon for your DDD of the lumbar to have MRI to ruled out herniated disc ibuprofen or Motrin as needed for pain ice pack and warm compresses advised Print Language: German Stand Alone Forms: [employer] Award Info., Patient Portal Info Letter PA/BACTERIOLOGY PROFESSOR Supervising Physician PA/BACTERIOLOGY PROFESSOR Supervising Physician: Dr. Peng
== END 2025-04-22 01:00 | disposition home or self-care (01) ==
LOC: SERX 04-22 01:04
PROVIDERS: Nurse Practitioner Family; Emergency Provider Emergency Medicine; PCP Family Medicine
DX: N39.0 Urinary tract infection, site not specified (principal); E11.9 Type 2 diabetes mellitus without complications; M51.370 Other intervertebral disc degeneration, lumbosacral region with discogenic back pain only; R16.0 Hepatomegaly, not elsewhere classified; R10.9 Unspecified abdominal pain; Z79.84 Long term (current) use of oral hypoglycemic drugs
CPT/HCPCS: 36415; 74176; 80053; 81001; 81025; 83690; 85025; 87086; 99284; A9270

== ENCOUNTER 2025-06-04 23:40 | Emergency (ER) | payer MEDICARE, MEDICAID, SELFPAY ==
[2025-06-04 23:41] VITALS: BMI 28.4
[2025-06-04 23:55] VITALS: BP 175/92; PULSE 67; RESP 20; TEMP 36.6; O2SAT 97
--- NOTE | 2025-06-05 00:03 | PD.EDDENTL ---
ED Dental RME/HPI General Chief complaint: Dental/Oral/Throat Stated complaint: R UPPER BACK TOOTH PAIN Time Seen by Provider: 06/04/25 23:58 Arrival date/time: 06/04/25 23:40 64F with history of DM and NF presents to ED with R upper dental pain. No radiation. Patient does not go to dentist often, but will. Limitations: no limitations Related Data Home Medications ?Medication ?Instructions ?Recorded ?Confirmed dapagliflozin propanediol 10 mg 10 mg PO QDAY 01/26/20 07/30/21 tablet (Farxiga) sitagliptin phosphate 100 mg 100 mg PO QDAY 01/26/20 07/30/21 tablet (Januvia) amlodipine 5 mg tablet 5 mg PO QDAY 07/30/21 07/30/21 Previous Rx's ?Medication ?Instructions ?Recorded benzonatate 100 mg capsule 100 mg PO TID #14 caps 09/28/23 magnesium citrate 150 ml PO .once #296 mL 12/04/24 amoxicillin 875 mg-potassium 1 tab PO BID 7 days #14 tabs 06/04/25 clavulanate 125 mg tablet Allergies Allergy/AdvReac Type Severity Reaction Status Date / Time bee venom protein (honey bee) Allergy Severe Difficulty Verified 06/04/25 23:43 Breathing Review of Systems Review of Systems Systems Reviewed: All systems reviewed, normal except as documented ENT Ears, Nose, Mouth, and Throat: Reports as per HPI and Reports dental pain Past Medical History Past Medical History NEUROLOGIC: Negative Neurological Disorders CARDIAC: Positive Hypertension; Negative Cardiac Disorders or Congestive Heart Failure RESPIRATORY: Negative Chronic Obstructive Pulmonary Disease (COPD) or Asthma GENITOURINARY: Negative Renal Disease ENDOCRINE: Positive Endocrine Disorders and Diabetes Mellitus Type 2; Negative Diabetes Mellitus Type 1 HEMATOLOGIC: Negative Sickle Cell Disease Social History SMOKING STATUS: Never smoker SUBSTANCE USE: does not use ED Exam General Limitations: Present no limitations General appearance: Present alert and in no apparent distress Head Head exam: Present atraumatic ENT ENT exam: Present mucous membranes moist Expanded ENT Exam Teeth exam: Present dental caries and dental tenderness # (patient states) Neck Neck exam: Present normal inspection, full ROM and trachea midline Chest Chest inspection: Present normal inspection and symmetric chest wall rise Neurological Exam Neurological exam: Present alert and oriented X3 Psychiatric Psychiatric exam: Present normal affect and normal mood Skin Skin exam: Present warm, dry, intact and normal color Course Quality Measures none Orders Category Date Time Status Amoxicillin/Pot Clav 875 [Augmentin 875] Med 06/04/25 23:58 Discontinued 1 tab PO X1 ONE HYDROcodone*/APAP 5/325 [[place] 5/325] Med 06/04/25 23:58 Discontinued 1 tab PO X1 ONE Vital Signs Vital signs: Vital Signs Temperature 98 F 06/04/25 23:55 Pulse Rate 67 06/04/25 23:55 Respiratory Rate 20 06/04/25 23:55 Blood Pressure 175/92 H 06/04/25 23:55 Pulse Oximetry (%) 97 06/04/25 23:55 Oxygen Delivery Method Room Air 06/04/25 23:55 O2 at 97% on RA and WNLs Dental / Oral MDM Narrative MDM Narrative:: 64F with history of DM and NF presents to ED with R upper dental pain. No radiation. Patient does not go to dentist often, but will. Physical exam reveals multiple dental caries. Patient states it hurts when she presses on tooth. Patient is afebrile, calm, and alert. Meds and educational guidance counselor. Patient data External records reviewed:: [facility] previous records Clinical information provided by:: patient Social determinants that could affect healthcare access:: none Patient has the following chronic illnesses:: DM and NF How is presenting disease/condition affected by chronic disease/condition?: exacerbated by Evaluation data The following diagnostics were reviewed and interpreted by me:: other (specify) (none) Lab and/or radiology exams considered but not ordered:: not ordered Interpretation Summary: n/a Medications / Prescriptions Medications or Prescriptions considered but not ordered:: ordered Medication administrations:: Medication Administration History Discontinued Medications Hydrocodone Bitart/Acetaminophen (Hydrocodone/Apap 5/325 Tablet) 1 tab PO X1 ONE Stop: 06/04/25 23:59 Amoxicillin/Clavulanate Potassium (Amoxicillin/Pot Clav 875 Tablet) 1 tab PO X1 ONE Stop: 06/04/25 23:59 above Consultations Consultation(s) initiated? (list below): No Diagnosis Dental Differential Diagnosis: gingival abscess, dental caries, toothache, dental abscess, fracture of tooth and aphthous ulcer Most likely diagnosis given after review of the tests above:: toothache Admission Indicated Admission indicated?: not indicated Admission Request Was there a request for admission?: No Disposition Plan Disposition Plan: Discharge Discharge Attestation Discharge Attestation: The patient and all family members were given an opportunity to ask questions and understood the discharge instructions. Discharge instructions specifically effects, indications for sooner follow up or return to the emergency department, and the expected course of current diagnosis. Patient condition: Stable Discharge Plan Plan Patient Disposition: HOME (Self Care) Discharge Disposition comment: Stable Prescriptions/Referrals Prescriptions/Med Rec: New amoxicillin-pot clavulanate 875-125 mg tablet 1 tab PO BID 7 Days Qty: 14 0RF No Action Januvia 100 mg Tablet 100 mg PO QDAY Farxiga 10 mg Tablet 10 mg PO QDAY amlodipine 5 mg Tablet 5 mg PO QDAY benzonatate 100 mg capsule 100 mg PO TID Qty: 14 0RF magnesium citrate Solution 150 ml PO .once Qty: 296 0RF Problem List Clinical Impression: Toothache Patient/Caregiver Discharge Instructions Education Materials: ED Dental Pain Additional Instructions: Please follow-up with PCP within 24-48 hours and return immediately if symptoms worsen. See dentist soon. Print Language: Palauan Stand Alone Forms: Patient Portal Info Letter BARBI/JA Supervising Physician JANEL Supervising Physician: Dr. Peng
[2025-06-05] MEDS: HYDROcodone/APAP 5/325 TABLET 1 TAB PO (00:25)
[2025-06-05] MEDS: AMOXICILLIN/POT CLAV 875 TABLET 1 TAB PO (00:25)
== END 2025-06-05 00:28 | disposition home or self-care (01) ==
LOC: SERX 06-05 00:43
PROVIDERS: Emergency Provider Emergency Medicine
DX: K08.89 Other specified disorders of teeth and supporting structures (principal)
CPT/HCPCS: 99282; A9270

== ENCOUNTER 2025-07-29 09:12 | Emergency (ER) | payer MEDICARE, MEDICAID, SELFPAY ==
[2025-07-29 09:24] VITALS: BP 190/78; PULSE 80; RESP 18; TEMP 36.9; O2SAT 97; BMI 41.3
--- NOTE | 2025-07-29 09:34 | PD.EDEAR ---
ED Ear RME/HPI General Chief complaint: Headache Stated complaint: PAIN R) SIDE HEAD (10), DIZZY Source: patient Arrival date/time: 07/29/25 09:12 64-year-old female with a history of hypertension, type 2 diabetes, presents to the emergency room with a chief complaint of right-sided headache, dizziness, right-sided ear pain x 3 days Mode of arrival: ambulatory Limitations: no limitations Related Data Home Medications ?Medication ?Instructions ?Recorded ?Confirmed dapagliflozin propanediol 10 mg 10 mg PO QDAY 01/26/20 07/30/21 tablet (Farxiga) sitagliptin phosphate 100 mg 100 mg PO QDAY 01/26/20 07/30/21 tablet (Januvia) amlodipine 5 mg tablet 5 mg PO QDAY 07/30/21 07/30/21 Previous Rx's ?Medication ?Instructions ?Recorded benzonatate 100 mg capsule 100 mg PO TID #14 caps 09/28/23 magnesium citrate 150 ml PO .once #296 mL 12/04/24 amoxicillin 875 mg-potassium 1 tab PO BID 7 days #14 tabs 07/29/25 clavulanate 125 mg tablet Allergies Allergy/AdvReac Type Severity Reaction Status Date / Time bee venom protein (honey bee) Allergy Severe Difficulty Verified 07/29/25 09:15 Breathing Review of Systems Review of Systems Systems Reviewed: All systems reviewed, normal except as documented Constitutional Constitutional: Reports system reviewed and no additional complaints, except as documented, Denies fatigue, Denies fever(s), Denies headache(s) and Denies weakness Eyes Eyes: Reports system reviewed and no additional complaints, except as documented, Denies blurry vision and Denies change in vision ENT Ears, Nose, Mouth, and Throat: Reports system reviewed and no additional complaints, except as documented, Reports otalgia, Denies headache(s), Denies nasal congestion, Denies throat swelling and Denies vertigo Cardiovascular Cardiovascular: Reports system reviewed and no additional complaints, except as documented, Denies chest pain, Denies dyspnea and Denies dyspnea on exertion Respiratory Respiratory: Reports system reviewed and no additional complaints, except as documented, Denies chest congestion, Denies cough, Denies dyspnea, Denies dyspnea on exertion and Denies wheezing Gastrointestinal Gastrointestinal: Reports system reviewed and no additional complaints, except as documented, Denies abdominal pain, Denies cramping, Denies nausea and Denies vomiting Genitourinary Genitourinary: Reports system reviewed and no additional complaints, except as documented Musculoskeletal Musculoskeletal: Reports system reviewed and no additional complaints, except as documented and Denies back pain Integumentary/Breasts Skin/Breast: Reports system reviewed and no additional complaints, except as documented and Denies wounds Neurologic Neurologic: Reports system reviewed and no additional complaints, except as documented, Denies confusion, Denies headache(s), Denies lack of coordination, Denies vertigo and Denies weakness Psychiatric Psychiatric: Reports system reviewed and no additional complaints, except as documented, Denies anxiety, Denies confusion, Denies depression, Denies paranoia, Denies suicidal ideation and Denies tactile hallucinations Endocrine Endocrine: Reports system reviewed and no additional complaints, except as documented and Denies fatigue Hematologic/Lymphatic Hematologic/Lymphatic: Reports system reviewed and no additional complaints, except as documented and Denies lymphadenopathy Allergic/Immunologic Allergic/Immunologic: Reports system reviewed and no additional complaints, except as documented, Denies throat swelling, Denies urticaria and Denies wheezing Past Medical History Past Medical History NEUROLOGIC: Negative Neurological Disorders CARDIAC: Positive Hypertension; Negative Cardiac Disorders or Congestive Heart Failure RESPIRATORY: Negative Chronic Obstructive Pulmonary Disease (COPD) or Asthma GENITOURINARY: Negative Renal Disease ENDOCRINE: Positive Endocrine Disorders and Diabetes Mellitus Type 2; Negative Diabetes Mellitus Type 1 HEMATOLOGIC: Negative Sickle Cell Disease Social History SMOKING STATUS: Never smoker SUBSTANCE USE: does not use ED Exam General Limitations: Present no limitations General appearance: Present alert and in no apparent distress Head Head exam: Present atraumatic Eye Eye exam: Present normal appearance, PERRL and EOMI ENT ENT exam: Present normal exam, normal oropharynx and mucous membranes moist; Absent TM's normal bilaterally Expanded ENT Exam External ear exam: Present external tenderness TM/Canal exam: Right TM: erythema, bulging, effusion, canal discharge and canal tenderness Neck Neck exam: Present normal inspection, full ROM and trachea midline Chest Chest inspection: Present normal inspection and symmetric chest wall rise Respiratory Respiratory exam: Present normal lung sounds bilaterally Cardiovascular Cardiovascular exam: Present regular rate, normal rhythm and normal heart sounds Abdominal Exam Abdominal exam: Present soft and normal bowel sounds Extremities Exam Extremities exam: Present normal inspection and full ROM Back Exam Back exam: Present normal inspection and full ROM Neurological Exam Neurological exam: Present alert, oriented X3 and CN II-XII intact Psychiatric Psychiatric exam: Present normal affect and normal mood Skin Skin exam: Present warm, dry, intact and normal color Course Quality Measures none Orders Category Date Time Status cefTRIAXone [Rocephin] 1,000 mg Med 07/29/25 09:33 Discontinued Lidocaine 1% Pf Vial 5ml [Xylocaine 1% 5 ml] 2.1 ml IM X1 Vital Signs Vital signs: Vital Signs Temperature 98.4 F 07/29/25 09:24 Pulse Rate 80 07/29/25 09:24 Respiratory Rate 18 07/29/25 09:24 Blood Pressure 190/78 H 07/29/25 09:24 Pulse Oximetry (%) 97 07/29/25 09:24 Oxygen Delivery Method Room Air 07/29/25 09:24 Ear MDM Narrative MDM Narrative:: 64-year-old female with a history of hypertension, type 2 diabetes, presents to the emergency room with a chief complaint of right-sided headache, dizziness, right-sided ear pain x 3 days Patient is hemodynamically stable and in no apparent distress. Patient is afebrile not tachycardic not tachypneic Physical examination shows an erythemic bulging right sided tympanic membrane with external ear canal tenderness Findings are consistent with otitis media Patient was discharged and educated to follow-up with primary care provider in the next 24 to 48 hours and return to the emergency room for any evidence of worsening signs or symptoms Patient data External records reviewed:: [facility] previous records Clinical information provided by:: patient Social determinants that could affect healthcare access:: none Patient has the following chronic illnesses:: Hypertension and type 2 diabetes How is presenting disease/condition affected by chronic disease/condition?: uneffected by Evaluation data The following diagnostics were reviewed and interpreted by me:: lab results and radiology exam(s) Lab and/or radiology exams considered but not ordered:: Labs and radiology exams considered and ordered Interpretation Summary: N/A Medications / Prescriptions Medications or Prescriptions considered but not ordered:: Medication given Medication administrations:: Medication Administration History Discontinued Medications Ceftriaxone Sodium 1,000 mg/ (Lidocaine HCl 2.1 ml) 0 mg IM X1 ONE Stop: 07/29/25 09:34 Medication given Consultations Consultation(s) initiated? (list below): No Diagnosis Ear Differential Diagnosis: otitis externa, otitis media and ruptured TM Most likely diagnosis given after review of the tests above:: Otitis media Admission Indicated Admission indicated?: not indicated Admission Request Was there a request for admission?: No Disposition Plan Disposition Plan: Discharge Discharge Attestation Discharge Attestation: The patient and all family members were given an opportunity to ask questions and understood the discharge instructions. Discharge instructions specifically effects, indications for sooner follow up or return to the emergency department, and the expected course of current diagnosis. Patient condition: Stable Discharge Plan Plan Patient Disposition: HOME (Self Care) Discharge Disposition comment: Stable Prescriptions/Referrals Prescriptions/Med Rec: New amoxicillin-pot clavulanate 875-125 mg tablet 1 tab PO BID 7 Days Qty: 14 0RF No Action Januvia 100 mg Tablet 100 mg PO QDAY Farxiga 10 mg Tablet 10 mg PO QDAY amlodipine 5 mg Tablet 5 mg PO QDAY benzonatate 100 mg capsule 100 mg PO TID Qty: 14 0RF magnesium citrate Solution 150 ml PO .once Qty: 296 0RF Problem List Clinical Impression: Otitis media Patient/Caregiver Discharge Instructions Education Materials: ED Otitis Media Antibiotic ... Additional Instructions: Please follow-up with your primary care provider in the next 24 to 48 hours Antibiotics are sent to your pharmacy please pick them up and take them as indicated For any evidence of worsening signs or symptoms return to the emergency room immediately Print Language: Korean Stand Alone Forms: [employer]ailin Award Info., Work/School Release, Patient Portal Info Letter BARBI/JA Supervising Physician BARBI/JA Supervising Physician: Dr. Peng
== END 2025-07-29 10:58 | disposition home or self-care (01) ==
LOC: SERX 09:57
PROVIDERS: Emergency Provider Emergency Medicine; PCP Family Medicine
DX: H66.91 Otitis media, unspecified, right ear (principal)
CPT/HCPCS: 96372; 99282; J0696; J3490